=== PATIENT | female | born 1945 | race Caucasian/White ===

== ENCOUNTER → 2021-08-13 | Outpatient (CLI) | payer MEDICARE ==
[~2021-08-13] VITALS: Ht 167.6 cm; Wt 126.1 kg
== END ==
LOC: OPSV 06:13
DX: M24.541 Contracture, right hand (principal)
CPT/HCPCS: G0463; J0775

== ENCOUNTER → 2021-08-15 | Outpatient (CLI) | payer MEDICARE ==
[~2021-08-15] VITALS: Ht 167.6 cm; Wt 126.1 kg
== END ==
LOC: OPSV 09:47
PROC: 3E013TZ Introduction of Destructive Agent into Subcutaneous Tissue, Percutaneous Approach (ICD-10-PCS; principal; 2021-08-15)
DX: M72.0 Palmar fascial fibromatosis [Dupuytren] (principal); Z79.84 Long term (current) use of oral hypoglycemic drugs; Z79.899 Other long term (current) drug therapy; Z88.1 Allergy status to other antibiotic agents; Z88.2 Allergy status to sulfonamides; Z88.5 Allergy status to narcotic agent; Z88.8 Allergy status to other drugs, medicaments and biological substances
CPT/HCPCS: J0775